=== PATIENT | female | born 1980 | race Two or more races ===

== ENCOUNTER 2020-05-17 15:21 | Emergency (ER) | payer OTHER, SELFPAY ==
[2020-05-17 15:36] VITALS: BP 113/78; PULSE 113; RESP 19; TEMP 37.4; O2SAT 98; BMI 24.0
--- NOTE | 2020-05-17 15:42 | XR_ITS ---
EXAMINATION: XR CHEST CLINICAL INFORMATION: Cough. Covid symptoms. COMPARISON: Previous chest x-ray most recent September 2013 TECHNIQUE: Frontal view of the chest was obtained. FINDINGS: No significant abnormality is noted involving the heart, lungs, mediastinum, bony thorax or soft tissues. XR/XR chest 1V IMPRESSION: Unremarkable examination.
--- NOTE | 2020-05-17 15:49 | PC.NURSE ---
covid swab performed, pt states she took tylenol at 2pm, will notify provider
[2020-05-17 16:39] LABS: Influenza A PCR NEGATIVE (Negative); Influenza B PCR NEGATIVE (Negative); Resp Syncy Virus RNA Qual PCR NEGATIVE (Negative)
[2020-05-17 16:50] LABS: SARS COV2 PCR INHOUSE POSITIVE (Negative)
--- NOTE | 2020-05-17 16:56 | ED.GENADULT ---
HPI - General Adult General Chief complaint: General Medical Stated complaint: BODYACHES,CHILLS Time Seen by Provider: 05/17/20 15:42 Related Data Previous Rx's Medication Instructions Recorded ibuprofen 600 mg PO Q8H PRN #20 tab 05/17/20 ondansetron HCl [Zofran] 4 mg PO Q8H PRN #15 tab 05/17/20 Allergies Allergy/AdvReac Type Severity Reaction Status Date / Time penicillin V Allergy Unknown throat Verified 11/30/17 00:00 swell Penicillins [PENICILLINS] Allergy Unknown SWELLING Unverified 03/07/20 14:52 [facility] Social History Social History Alcohol intake: never Smoking Status: Never smoker Use of substances other than those prescribed or required for medical reasons: Yes Substance Use Type: Marijuana Substance Use Frequency: Occasionally Last Used Substance: Days (ago) Any prior treatment program specific to substance use: No Advance Directives: No Advance Directives Information Provided: No Physical Exam Vital Signs: Vital Signs: Last Vital Signs Temp 99.4 F 05/17/20 15:36 Pulse 113 H 05/17/20 15:36 Resp 19 05/17/20 15:36 BP 113/78 05/17/20 15:36 Pulse Ox 98 05/17/20 15:36 Body Mass Index 24.0 Medical Decision Making Lab Data Labs: Lab Results 05/17/20 Range/Units 15:47 Coronavirus (PCR) POSITIVE A (Negative) Influenza Type A (PCR) NEGATIVE (Negative) Influenza Type B (PCR) NEGATIVE (Negative) RSV RNA Qual (PCR) NEGATIVE (Negative) Discharge Plan Discharge Clinical Impression: COVID-19 Patient Disposition: Home, Self-Care Instructions: COVID-19 (Coronavirus Disease 2019) (ED) Additional Instructions: You tested positive for COVID-19 today. You oxygen levels and chest x-rays were normal. Take over the counter cold and flu medications as needed for your symptoms. Stay home, do not go out in public for 10-14 days. Rest. Stay hydrated. Take Tylenol and/or Motrin as needed for fever, aches and pains. Use warm salt water gargles several times per day for sore throat. Use over the counter Cepacol lozenges or Chloraseptic spray for sore throat. If you develop difficulty breathing, shortness of breath or chest pain call 911 or come back to the ER for further evaluation. Prescriptions: New ondansetron HCl [Zofran] 4 mg tablet 4 mg PO Q8H PRN (Reason: nausea and vomiting) Qty: 15 RF: 0 ibuprofen 600 mg tablet 600 mg PO Q8H PRN (Reason: pain) Qty: 20 RF: 0
== END 2020-05-17 18:13 | disposition home or self-care (01) ==
PROVIDERS: Physician Assistant; Emergency Provider Emergency Medicine Emergency Medical Services; PCP Internal Medicine Geriatric Medicine
DX: U07.1 COVID-19 (principal); M79.10 Myalgia, unspecified site; F12.90 Cannabis use, unspecified, uncomplicated; Z79.899 Other long term (current) drug therapy
CPT/HCPCS: 0241U; 71045; 99283; 99284

== ENCOUNTER 2024-01-10 13:17 | Emergency (ER) | payer OTHER, SELFPAY ==
[2024-01-10 13:40] VITALS: BP 123/78; PULSE 75; RESP 18; TEMP 36.5; O2SAT 99; BMI 24.2
--- NOTE | 2024-01-10 13:41 | ED.ABDPAIN ---
HPI - Abdominal Pain General Chief Complaint: Abdominal Pain Stated Complaint: Vomting/Diarrhea since sat Time Seen by Provider: 01/10/24 17:27 Source: patient Mode of arrival: ambulatory Limitations: no limitations History of Present Illness HPI narrative: Patient is a 43-year-old female who presents emergency department for evaluation. Reports that she had salmon at a restaurant on 01/08/24 at 17:00 , at 21:00 she developed nausea and vomiting after few hours developed diarrhea. She reports all day yesterday inability to tolerate any oral intake without having watery vomiting and diarrhea. Today she has not had anything to eat or drink due to her symptoms, she has persistent nausea, epigastric pain that is made worse with vomiting. Denies fevers, chills, chest pain, shortness of breath, genitourinary symptoms, hematochezia, melena, recent antibiotic usage. Related Data Previous Rx's ?Medication ?Instructions ?Recorded ibuprofen 600 mg tablet 600 mg PO Q8H PRN pain #20 tabs 05/17/20 ondansetron HCl 4 mg tablet 4 mg PO Q8H PRN nausea and 05/17/20 (Zofran) vomiting #15 tabs ondansetron 4 mg disintegrating 4 mg PO Q8H PRN nausea and 01/10/24 tablet vomiting #10 tabs Allergies Allergy/AdvReac Type Severity Reaction Status Date / Time penicillin V Allergy Unknown throat Verified 01/10/24 13:44 swell Penicillins [PENICILLINS] Allergy Unknown SWELLING Unverified 03/07/20 14:52 Review of Systems Review of Systems Yes all other systems are reviewed and are negative PMFSH Past Medical History Attestation statement: The following information was validated with the patient. Source: old records reviewed Social History Social History Alcohol intake: never Substance Use Type: Marijuana Advance Directives: No Advance Directives Information Provided: Yes Do you have a plan to hurt others: No Plan Physical Exam ED Vital Signs: Vital Signs - 24 hr 01/10/24 13:40 01/10/24 17:47 01/10/24 21:29 Temperature 97.7 F 97.1 F 97.1 F Pulse Rate 75 68 68 Respiratory Rate 18 18 18 Blood Pressure 123/78 116/75 116/75 Pulse Oximetry 99 100 100 Oxygen Delivery Method Room Air Room Air Room Air BMI result Body Mass Index 24.2 Appearance: Alert.?Oriented to person, place and time. No acute distress.?Normal affect. Eyes: Pupils equal, round and reactive to light.? ENT: Pharynx normal.?? Neck: Normal inspection.? Neck supple.?? CVS: Heart sounds normal. Normal heart rate and rhythm.? Pulses normal.?? Respiratory: No respiratory distress.? Lung sounds clear to auscultation bilaterally?? Abdomen: Soft with mild tenderness over the epigastrium. No rigidity. No guarding. No rebound tenderness. No flank pain. Normoactive bowel sounds. Skin: Skin warm and dry.? Normal skin color.? ? Extremities: No lower extremity edema.? Neuro: Moves all extremities spontaneously. Sensation intact bilaterally. Ambulates with normal steady gait. Course Course Course Narrative: This is an RME: Additional HPI, ROS, PE not included below will be deferred to primary provider. RME assessment and note performed by: Jenifer Acuña PA-C This is a 11-dvas-adi-female, with a hx of asthma, who presents to the ER with a complaint of nausea, diarrhea since wednesday. Unable to eat anything without having diarrhea. No bloody or black stool. She ate at a restaurant by the [employer] by [place], and ate salmon has had diarrhea and sxs since. Plan: Labs Reevaluation(s) Reevaluation #1: Patient was able to tolerate oral fluids and crackers she had nausea and a scant amount of vomiting afterwards but was able to keep majority down. She was offered to remain in the emergency department for additional antiemetics, and further evaluation, we discussed potential of inpatient admission for intractable nausea and vomiting. She would like to be discharged home at this time, she feels well enough to go home. I will send a prescription for Zofran to her pharmacy, with instructions of a bland diet, ensuring hydration, diluted Pedialyte/Gatorade. Strict return precautions. She verbalized understanding. She is unable to provide a stool sample while in the emergency department Medical Decision Making Medical Decision Making MDM Narrative: Patient is a 43-year-old female who presents emergency department for evaluation of nausea, vomiting, diarrhea with onset after eating salmon from a restaurant as per HPI. Overall she appears well, nontoxic, afebrile. Abdominal examination is benign. Will obtain CBC to evaluate for leukocytosis/ anemia, CMP and lipase to evaluate for abnormal electrolytes /abnormal renal function/ abnormal hepatic/biliary function, stool studies. Patient will receive 1 L normal saline IV fluid, ondansetron IV, plan for p.o. trial following. Differential Diagnosis Differential Diagnoses: The differential diagnosis associated with the presentation includes (Gastroenteritis, food-borne illness, acute hepatitis, colitis, enteritis, diverticulitis) Admission/Observation Consideration of admission/observation: Escalation of care including admission/observation considered Lab Data MDM Lab Attestation statement: I reviewed the patient's lab results. CBC is without leukocytosis or left shift, anemia or thrombocytopenia. No electrolyte derangement. No VIPUL. LFTs within normal range. Lipase normal. HCG negative. Viral panel negative. 01/10/24 14:22 01/10/24 14:22 Labs: Lab Results 01/10/24 Range/Units 14:22 WBC 6.2 (4.8-10.8) X10*3/uL RBC 4.13 L (4.20-5.50) X10*6/uL Hgb 13.6 (12.0-16.0) g/dl Hct 40.0 (37.0-47.0) % MCV 96.9 (80.0-98.0) fL MCH 32.9 (27.0-33.0) pg MCHC 34.0 (31.0-35.0) g/dl RDW 12.5 (11.0-16.0) % Plt Count 316 (160-400) X10*3/uL MPV 10.0 (9.4-12.3) fL Immature Gran % (Auto) 0.3 (0.0-0.4) % Neut % (Auto) 65.0 (45-73) % Lymph % (Auto) 24.9 (20-40) % [place] % (Auto) 6.9 (2-11) % Eos % (Auto) 2.3 (0-4) % Baso % (Auto) 0.6 (0-2) % Lymph # (Auto) 1.5 (1.2-4.9) X10*3/uL [place] # (Auto) 0.4 (0.1-1.2) X10*3/uL Eos # (Auto) 0.1 (0.0-0.4) X10*3/uL Baso # (Auto) 0.0 (0.0-0.2) X10*3/uL Abs Immat Gran (auto) 0.02 (0.00-0.03) X10*3/uL Absolute Neuts (auto) 4.0 (2.0-8.3) x10*3/uL Absolute Nucleated RBC 0.000 (0.0-0.012) X10*3/uL Nucleated RBC % (auto) 0.0 (0.0-0.2) /100WBC Sodium 143 (135-145) mmol/L Potassium 3.8 (3.3-5.1) mmol/L Chloride 106 (96-108) mmol/L Carbon Dioxide 29 (22-29) mmol/L Anion Gap 12 (12-20) BUN 9 (9-16) mg/dL Creatinine 1.09 (0.5-1.4) mg/dL Estim Creat Clear Calc 58.7 Estimated GFR 55 Random Glucose 97 (60-115) mg/dL Calcium 9.6 (8.4-10.2) mg/dL Magnesium 2.2 (1.6-2.6) mg/dL Total Bilirubin 0.4 (0.0-1.0) mg/dL Direct Bilirubin 0.1 (0.0-0.5) mg/dL AST 16 (5-31) U/L ALT 10 (0-31) U/L Alkaline Phosphatase 62 (39-117) U/L Total Protein 7.3 (6.5-8.0) g/dL Albumin 4.5 (3.5-5.0) g/dL Lipase 11 (8-78) U/L Beta HCG, Quant < 2 mIU/mL Influenza Type A (PCR) NEGATIVE (Negative) Influenza Type B (PCR) NEGATIVE (Negative) RSV RNA Qual (PCR) NEGATIVE (Negative) SARS-CoV-2 RNA (RT-PCR) NEGATIVE (Negative) External Record Review External record reviewed: Outpatient record Tests considered The following testing was considered but not selected: Consider CT of the abdomen and pelvis, mild epigastric tenderness otherwise benign abdominal examination, CT imaging deferred symptoms at this time most consistent with food-borne illness gastroenteritis Prescription Management I considered prescription management with: Other (Antiemetic) Medications Administered Discontinued Medications Generic Name Dose Route Start Last Admin Trade Name Freq PRN Reason Stop Dose Admin Sodium Chloride 1,000 mls @ 999 mls/hr 01/10/24 18:00 01/10/24 19:38 Ns IV 01/10/24 19:00 Infused .Q1H1M ETHEL Infusion Ondansetron HCl 4 mg 01/10/24 17:56 01/10/24 18:26 Ondansetron Hcl 4 Mg/2 Ml Vial IVPUSH 01/10/24 17:57 4 mg ONCE ONE Administration Discharge Plan Discharge Clinical Impression: Gastroenteritis Patient Disposition: Home, Self-Care Instructions: Acute Nausea and Vomiting (ED), Acute Diarrhea (ED) Additional Instructions: Introduce a bland diet including crackers, bananas, rice, soup, toast, and boiled vegetables. This may progress to plain baked or boiled chicken or turkey. Avoid dairy products or foods high in fat or grease. Take Zofran as needed for nausea/vomiting. Return to emergency department if you are unable to tolerate oral intake, continued to have persistent vomiting, or worsening symptoms. Prescriptions: New ondansetron 4 mg tablet,disintegrating 4 mg PO Q8H PRN (Reason: nausea and vomiting) Qty: 10 0RF No Action ondansetron HCl [Zofran] 4 mg tablet 4 mg PO Q8H PRN (Reason: nausea and vomiting) Qty: 15 0RF ibuprofen 600 mg tablet 600 mg PO Q8H PRN (Reason: pain) Qty: 20 0RF Referrals: Name,MD Dusty [Primary Care Provider] - Stand Alone Forms: Work/School Release Interventions: ED Discharge Assessment Last Done: 01/10/24 21:29 Discharge Date/Time: 01/10/24 21:30 Print Language: [place]
[2024-01-10 14:31] LABS: MANUAL DIFF FLAG NO
[2024-01-10 14:32] LABS: Basophils Percent Auto 0.6 % (0-2); Eosinophils Absolute Auto 0.1 X10*3/uL (0.0-0.4); Eosinophils Percent Auto 2.3 % (0-4); Hemoglobin 13.6 g/dl (12.0-16.0); Imm Gran Abs Auto 0.02 X10*3/uL (0.00-0.03); Imm Gran Pct Auto 0.3 % (0.0-0.4); Lymphocytes Absolute Auto 1.5 X10*3/uL (1.2-4.9); Lymphocytes Percent Auto 24.9 % (20-40); Mean Corpuscular Hemoglobin 32.9 pg (27.0-33.0); Mean Corpuscular Volume 96.9 fL (80.0-98.0); Monocytes Absolute Auto 0.4 X10*3/uL (0.1-1.2); Monocytes Percent Auto 6.9 % (2-11); Platelet Count 316 X10*3/uL (160-400); Red Blood Count 4.13 X10*6/uL (4.20-5.50); Red Cell Distribution Width 12.5 % (11.0-16.0); White Blood Count 6.2 X10*3/uL (4.8-10.8)
[2024-01-10 14:47] LABS: Alanine Aminotransferase 10 U/L (0-31); Albumin Level 4.5 g/dL (3.5-5.0); Alkaline Phosphatase 62 U/L (39-117); Anion Gap 12 (12-20); Aspartate Amino Transferase 16 U/L (5-31); Bilirubin Direct 0.1 mg/dL (0.0-0.5); Bilirubin Total 0.4 mg/dL (0.0-1.0); Blood Urea Nitrogen 9 mg/dL (9-16); Calcium 9.6 mg/dL (8.4-10.2); Carbon Dioxide 29 mmol/L (22-29); Chloride 106 mmol/L (96-108); Creatinine Clr Calc Pharmacy 58.7; Estimated Glomerular Filt Rate 55; Glucose Random 97 mg/dL (60-115); Lipase 11 U/L (8-78); Magnesium 2.2 mg/dL (1.6-2.6); Potassium 3.8 mmol/L (3.3-5.1); Sodium 143 mmol/L (135-145); Total Protein 7.3 g/dL (6.5-8.0)
[2024-01-10 14:57] LABS: HCG Quantitative < 2 mIU/mL
[2024-01-10 15:24] LABS: Influenza A PCR NEGATIVE (Negative); Influenza B PCR NEGATIVE (Negative); Resp Syncy Virus RNA Qual PCR NEGATIVE (Negative); SARS COV2 PCR INHOUSE NEGATIVE (Negative)
[2024-01-10 17:47] VITALS: BP 116/75; PULSE 68; RESP 18; TEMP 36.2; O2SAT 100
[2024-01-10] MEDS: ondansetron HCL 4 MG/2 ML VIAL IVPUSH (18:26)
[2024-01-10] MEDS: 0.9 % Sodium Chloride 1,000 ML 999 ML IV (18:26)
--- NOTE | 2024-01-10 19:38 | PC.NURSE ---
pt states she is feeling much better. given [facility] norma and saltines for PO trial per verbal from PA.
[2024-01-10 21:29] VITALS: BP 116/75; PULSE 68; RESP 18; TEMP 36.2; O2SAT 100
== END 2024-01-10 21:30 | disposition home or self-care (01) ==
PROVIDERS: Physician Assistant Medical; Emergency Provider Internal Medicine; PCP Internal Medicine Geriatric Medicine
DX: K52.89 Other specified noninfective gastroenteritis and colitis (principal); R11.2 Nausea with vomiting, unspecified; Z03.818 Encounter for observation for suspected exposure to other biological agents ruled out; Z79.899 Other long term (current) drug therapy
CPT/HCPCS: 0241U; 36415; 80048; 80076; 83690; 83735; 84702; 85025; 96361; 96374; 99283; 99284; J2405